=== PATIENT | female | born 1990 | race African-American/Black ===

== ENCOUNTER 2017-06-28 18:34 | Emergency (ER) | payer OTHER ==
[~2017-06-28] VITALS: Ht 162.6 cm; Wt 77.1 kg
[~2017-06-28 18:34] MED LIST: ACETAMINOPHEN325 M1 PO; ADVAIR HFA 230M12 GM INH; ALDOMET250 MG PO; AMOXICILLIN875 MG PO; CLARITIN10 MG PO; COLACE100 MG PO; HYDROCODONE-AP1 EAC6 PO; IBUPROFEN 600600 M1 PO; IBUPROFEN 800800 MG PO; LASIX 40 MG TAB40 M2 PO; LOPRESSOR50 PO; METFORMIN HCL500 MG PO; NOHOMEMEDICATIONS; PHENERGAN 25 MG25 M1 PO; PREDNISONE 20 M20 M1 PO; PREDNISONE 20 M20 MG PO; PREDNISONE50 MG PO; PRENATAL COMPL1 EACH PO; PROAIR HFA8.5 GM IH; PROVENTIL HFA6.7 G1 INH; SIMETHICON CHEW80 MG PO; SOOTHE TP; VENTOLIN HFA 1818 GM INH; [UNRECOGNIZED DRUG - OTHER] TP
[2017-06-28 18:58] LABS: BASOPHILS 0.2 % (0.0-2.0); EOSINOPHILS 0.2 % (0.0-3.0); HEMATOCRIT 34.4 % (37.0-47.0); HEMOGLOBIN 11.2 gm/dL (12.0-15.0); LYMPHOCYTES 12.5 % (24.0-44.0); MCH 24.4 pg (26.0-34.0); MCHC 32.7 g/dL (28.0-37.0); MCV 74.6 fL (80.0-100.0); MONOCYTES 4.4 % (1.0-8.0); PLATELET COUNT 336 thou/uL (150-400); POLYS 82.7 % (36.0-66.0); RDW 18.7 % (10.5-14.5); WBC 7.2 thou/uL (4.0-11.0)
[2017-06-28 19:00] LABS: MANUAL DIFF NO
[2017-06-28 19:12] LABS: CALCIUM 8.5 mg/dL (8.5-10.1); POTASSIUM 3.8 mmol/L (3.5-5.1)
[2017-06-28 19:18] LABS: ALBUMIN 3.7 g/dL (3.4-5.0); DIRECT BILIRUBIN 0.1 mg/dL (<0.1-0.3); TOTAL BILIRUBIN 0.5 mg/dL (<0.1-1.0); TOTAL PROTEIN 7.8 g/dL (6.4-8.2)
[2017-06-28] MEDS ORDERED: PHENERGAN 25 MG25 M1 PO (19:38)
[2017-06-28] MEDS ORDERED: PROMS25 WY RECTAL (19:38)
[2017-06-28] MEDS ORDERED: ZOFRAN ODT4 MG PO (19:38)
[2017-06-28 20:11] LABS: URINE BILIRUBIN NEGATIVE (Negative); URINE BLOOD 1+ (Negative); URINE COLOR YELLOW; URINE GLUCOSE-RANDOM* NEGATIVE (Negative); URINE KETONES 1+ (Negative); URINE NITRITE NEGATIVE (Negative); URINE PROTEIN (DIPSTICK) NEGATIVE (Negative); URINE SPECIFIC GRAVITY 1.015 (1.003-1.035); URINE UROBILINOGEN 0.2 E.U./dl (0.2-1.0)
[2017-06-28 20:18] LABS: BACTERIA 1-9 Few /HPF (None Seen); CASTS None Seen /LPF (None Seen); CRYSTALS None Seen /LPF (None Seen); SQUAMOUS 4-10 Moderate /LPF (0-3); URINE RBC 0-2 Rare /HPF (0-2); URINE WBC 0-5 Rare /HPF (0-5)
== END 2017-06-28 22:27 | disposition home or self-care (01) ==
LOC: ER 18:34
PROVIDERS: Emergency Medicine
DX: R10.84 Generalized abdominal pain (principal); R11.2 Nausea with vomiting, unspecified; R19.7 Diarrhea, unspecified; J45.909 Unspecified asthma, uncomplicated; Z98.890 Other specified postprocedural states